=== PATIENT | male | born 1965 | race Caucasian/White ===

== ENCOUNTER → 2019-06-30 | Day surgery (SDC) | payer BC ==
[2019-06-26 10:45] VITALS: BMI 27.9
[~2019-06-30] MED LIST: LACTATED RINGERS 1,000 ML IV SCH; LIDOCAINE 1% 20 ML VIAL (10MG/ML) FOR IV START INTRADERMA PRN; LIDOCAINE 1% INJ 10MG/ML (20 ML MDV) ONE; PROPOFOL 10 MG/ML 20 ML VIAL IV ONE
[2019-06-30 08:24] VITALS: TEMP 97
[2019-06-30 09:44] VITALS: BP 110/81; PULSE 95; RESP 17
--- NOTE | 2019-06-30 09:45 | P.PCN ---
Date of Procedure: 06/30/19 Description of Procedure: BRIEF HISTORY: Patient is a 54-year-old male presenting for outpatient colonoscopy for screening malignant neoplasm of the colon. Denies any change in bowel habits, blood per rectum or abdominal pain. No prior colonoscopy. PROCEDURE PERFORMED: Colonoscopy with polypectomy. PREOPERATIVE DIAGNOSIS: Screening for malignant neoplasm with colon, no prior colonoscopies. ESTIMATED BLOOD LOSS: Minimal. IV sedation per Anesthesia. PROCEDURE: After informed consent was obtained, the patient, was brought into the endoscopy unit. IV sedation was administered by Anesthesia under continuous monitoring. Digital rectal examination was normal. Initially the Olympus CF-190 flexible video colonoscope was then inserted in the rectum, gradually advanced into the cecum without any difficulty. Careful examination was performed as the scope was gradually being withdrawn. Ileocecal valve and the appendiceal orifice were visualized and appeared normal. Prep was excellent. Mucosa of the cecum, ascending colon, transverse colon, descending colon, sigmoid colon, and rectum appeared normal. 2 diminutive polyps measuring 1 mm and 2 mm in size removed from the ascending colon with cold forcep polypectomy. A small 4 mm sigmoid colon polyp removed with cold snare polypectomy. Retroflexion was performed in the rectum and no lesions were seen. The patient tolerated the procedure well. IMPRESSION: 2 diminutive ascending colon polyp removed with cold forceps. One small sigmoid colon polyp removed with cold snare polypectomy. Otherwise normal-appearing colon from rectum to cecum. RECOMMENDATIONS: Findings of this examination were discussed with the patient and his daughter. Okay to resume diet. Okay to resume medications. It is a repeat colonoscopy in 5 years pending pathology from polypectomy.
== END ==
LOC: ORWHC2ENDO 08:05
PROVIDERS: ATTEND Internal Medicine
DX: Z12.11 Encounter for screening for malignant neoplasm of colon (principal); D12.2 Benign neoplasm of ascending colon; D12.5 Benign neoplasm of sigmoid colon; Z87.891 Personal history of nicotine dependence; Z80.0 Family history of malignant neoplasm of digestive organs; Z79.82 Long term (current) use of aspirin; Z87.19 Personal history of other diseases of the digestive system; Z98.890 Other specified postprocedural states
CPT/HCPCS: 88305; 45380; 45385; J2001; J2704